=== PATIENT | male | born 1955 | race Caucasian/White ===

== ENCOUNTER 2023-07-28 16:25 | Emergency (ER) | payer OTHER, SELFPAY ==
--- NOTE | ~2023-07-28 | XR_ITS ---
EXAMINATION: XR CHEST CLINICAL INFORMATION: Chest pain. COMPARISON: None available. TECHNIQUE: PA view of the chest was obtained. FINDINGS: Normal heart size. Mild asymmetric elevation of the left hemidiaphragm with minimal streaky opacities in the left lower lobe. No pleural effusion or pneumothorax. No pulmonary edema. Age indeterminate deformity of the right mid clavicle. Visualized upper abdomen is within normal limits. XR/XR chest 1V IMPRESSION: 1. Mild asymmetric elevation of the left hemidiaphragm with streaky opacities in the left lower lobe most likely representing subsegmental atelectasis. 2. Age indeterminate deformity of the right mid clavicle. Correlate with physical examination and point tenderness.
[2023-07-28 16:37] VITALS: BP 141/90; PULSE 94; RESP 18; TEMP 36.5; O2SAT 96; BMI 29.6
--- NOTE | 2023-07-28 16:42 | ED_ITS ---
HPI - General Adult General Chief complaint: Psychiatric Symptoms Stated complaint: SI Time Seen by Provider: 07/28/23 18:06 Source: patient Mode of arrival: ambulatory Limitations: no limitations History of Present Illness HPI narrative: Pt is a 68yo male who presents to the ED with cp and psychological issues. States he has thoughts of hurting himself with a plan to slit his wrists. States his medical problems and psychological problems sparked the thoughts today. He notes that he has had passive SI before and has never acted on it. Still admits thoughts of harming self but states he would tell someone if he wanted to act on it. Denies HI. Pt states he sees an outpatient therapist. Pt notes a hx of anxiety and depression. He states that he has had chest pain constantly for the past few months as he has been trying to quit smoking. Associated with the chest pain is heartburn and nausea. Pt reports inpatient psychiatric hospitalization at [facility]. Related Data Home Medications Medication Instructions Recorded Confirmed acamprosate 333 mg tablet,delayed 666 mg PO TID 07/28/23 07/28/23 release cyanocobalamin (vitamin B-12) 1,000 mcg sublingual DAILY 07/28/23 07/28/23 1,000 mcg sublingual tablet famotidine 40 mg tablet 40 mg PO DAILY 07/28/23 07/28/23 methylcellulose (laxative) 500 mg 1,500 mg PO DAILY 07/28/23 07/28/23 tablet (Citrucel) nicotine (polacrilex) 4 mg buccal 8 mg PO Q2H PRN Nicotine Cravings 07/28/23 07/28/23 lozenge Previous Rx's Medication Instructions Recorded ziprasidone HCl 40 mg capsule 40 mg PO BID #60 caps 07/31/23 (Geodon) Allergies Allergy/AdvReac Type Severity Reaction Status Date / Time Penicillins Allergy Rash Verified 07/28/23 16:37 trazodone Allergy Rash Verified 07/28/23 16:37 Review of Systems 2 Review of Systems: Yes all other systems are reviewed and are negative ENT: Denies dizziness Cardiovascular: Cardiovascular: Reports chest pain and Reports dyspnea (occasional, not new) Respiratory: Respiratory: Reports dyspnea (occasional, not new) Gastrointestinal: Gastrointestinal: Denies constipation, Reports heartburn, Reports diarrhea (chronic), Reports nausea, Denies vomiting and Denies hematemesis Neurologic: Denies dizziness Psychiatric: Psychiatric: Reports anxiety, Reports depression, Denies auditory hallucinations, Denies visual hallucinations, Denies homicidal ideation and Reports suicidal ideation REPLACED BY [facility] Past Medical History Medical History (Updated 07/29/23 @ 15:00 by Boogie Wilson MD) Alcohol use disorder PTSD (post-traumatic stress disorder) MDD (major depressive disorder), recurrent, severe, with psychosis Physical Exam ED Vital Signs: Vital Signs - 24 hr 07/31/23 05:52 Temperature 98.0 F Pulse Rate 71 Respiratory Rate 16 Blood Pressure 100/64 Pulse Oximetry 90 L Oxygen Delivery Method Room Air BMI result Body Mass Index 29.6 Const General: cooperative, comfortable, alert and awake Orientation/consciousness: patient oriented x3 Limitations: no limitations HENMT Head: Yes normal to inspection Ears: hearing grossly normal bilaterally General nose exam: Normal external nose present Eyes General: appearance normal, both eyes and all related structures Resp Effort & Inspection: normal respiratory effort and able to speak in complete sentences Auscultation: clear to auscultation bilaterally Cardio Rate: regular rate Rhythm: regular rhythm Heart sounds: S1 normal heart sound present and S2 normal heart sound present GI Palpation (GI): Soft to palpation and nontender Auscultation: normal bowel sounds Neuro General: patient oriented x3 Psych Appearance: grossly normal Mental Status: mental status grossly normal (pt appears cognitively delayed) Speech and movement: Normal speech and movement present Affect: Indifferent affect present Attitude: cooperative Thought process: Normal thought process present Thought content: Suicidality present, no homicidality, no delusions, no hallucinations and Depressive thoughts present Insight: Poor insight present (Psych) Judgement: Limited judgement present (Psych) Course Course Course Narrative: RME: 68 yold male presents to the ED for Chest pain for months and suicidal/homicidal thoughts past couple of days. Recently discharged form detox. labs and EKG and xray ordered. Brought to psych POD. Care team consult placed. Reevaluation(s) Reevaluation #1: Patient seen by the care team and will be a bed search for inpatient psychiatric care. He is a voluntary surgeon is not on a Section 12 Time: 00:51 Reevaluation #2: physician observation: patient with COVID, Dr. wilson started new medications and will reassess in the moring Time: 15:48 Reevaluation #3: Physician observation continued: Patient was evaluated by the care team and the plan is to in in-patient bed search. Additional Reevaluation(s): 07:23 Physician observation continue Patient has been in the emergency department for 63 hours, there are no reported incidents by the overnight staff. Patient is COVID positive. Patient has been seen by the care team and is in in-patient bed search. Patient will remain in the emergency department Behavioral Health Unit until disposition can be determined or until patient's symptoms improve over time. 12:20 End physician observation Patient was re-evaluated by the care team and psychiatric consult was done by Dr. Garcia and they both were in agreement that the patient could be discharged Patient has an IOP appointment today 15:00 hours and his out reach worker will meet him tomorrow at 11:00 at the [facility]. Therefore the patient will be discharged home. Medications Administered Discontinued Medications Generic Name Dose Route Start Last Admin Trade Name Freq PRN Reason Stop Dose Admin Clonazepam 1 mg 07/29/23 12:04 07/29/23 13:35 Clonazepam 1 Mg Tablet PO 07/29/23 12:05 1 mg ONCE ONE Administration Clonazepam 1 mg 07/29/23 21:00 07/29/23 20:54 Clonazepam 1 Mg Tablet PO 07/29/23 23:55 1 mg BEDTIME ROWAN Administration Clonazepam 0.5 mg 07/30/23 09:00 07/30/23 21:03 Clonazepam 0.5 Mg Tablet PO 07/30/23 23:50 0.5 mg BID ROWAN Administration Cyanocobalamin 1,000 mcg 07/30/23 09:00 07/31/23 09:28 Cyanocobalamin (Vitamin B-12) 1,000 Mcg Tablet PO 1,000 mcg DAILY ROWAN Administration Diphenhydramine HCl 50 mg 07/29/23 03:48 07/29/23 03:54 Diphenhydramine Hcl 25 Mg Capsule PO 07/29/23 03:49 50 mg ONCE ONE Administration Famotidine 40 mg 07/30/23 09:00 07/31/23 09:27 Famotidine 20 Mg Tablet PO 40 mg DAILY ROWAN Administration Nicotine Polacrilex 2 mg 07/28/23 23:49 07/28/23 23:51 Nicotine Polacrilex Lozenge 2 Mg Lozenge BUCCAL 07/28/23 23:50 2 mg ONCE ONE Administration Nicotine Polacrilex 2 mg 07/29/23 11:26 07/29/23 11:30 Nicotine Polacrilex Lozenge 2 Mg Lozenge BUCCAL 07/29/23 11:27 2 mg ONCE ONE Administration Nicotine Polacrilex 4 mg 07/29/23 12:07 07/31/23 09:29 Nicotine Polacrilex Lozenge 4 Mg Lozenge BUCCAL 4 mg Q2H PRN Administration Nicotine Cravings Ziprasidone 20 mg 07/29/23 12:05 07/29/23 20:54 Ziprasidone 20 Mg Capsule PO 07/29/23 23:50 20 mg BID ROWAN Administration Ziprasidone 40 mg 07/30/23 08:00 07/31/23 09:27 Ziprasidone 40 Mg Capsule PO 40 mg BIDWM ROWAN Administration Medical Decision Making Medical Decision Making [facility] Narrative: 68-year-old male presents for evaluation of multiple complaints he complains of primarily depression with suicidal ideation but also complains of chronic chest pain. His chest pain is most significant with GI upset/peptic ulcer disease or gastritis. His troponin is negative, he had EKG is nonischemic. Patient is now medically cleared for care to evaluation Differential Diagnosis Differential Diagnoses: The differential diagnosis associated with the presentation includes (depressive episode, GERD, persistent depressive disorder, alcohol use disorder, acute stress reaction) Lab Data [facility] Lab Attestation statement: I reviewed the patient's lab results. No leukocytosis or anemia. No significant electrolyte abnormalities. Troponin less than 2.7 07/28/23 17:00 07/28/23 17:00 Labs: Lab Results 07/28/23 07/28/23 07/29/23 Range/Units 17:00 17:02 08:39 WBC 7.2 (4.8-10.8) X10*3/uL RBC 5.21 (4.60-5.80) X10*6/uL Hgb 14.9 (14.0-18.0) g/dl Hct 45.4 (42.0-52.0) % MCV 87.1 (80.0-98.0) fL MCH 28.6 (27.0-33.0) pg MCHC 32.8 (31.0-36.0) g/dl RDW 15.2 (11.0-16.0) % Plt Count 169 (160-400) X10*3/uL MPV 10.3 (9.4-12.4) fL Immature Gran % (Auto) 0.4 (0.0-0.4) % Neut % (Auto) 66.6 (45-73) % Lymph % (Auto) 19.8 L (20-40) % Oliver % (Auto) 13.0 H (2-11) % Eos % (Auto) 0.1 (0-4) % Baso % (Auto) 0.1 (0-2) % Lymph # (Auto) 1.4 (1.2-4.9) X10*3/uL Oliver # (Auto) 0.9 (0.1-1.2) X10*3/uL Eos # (Auto) 0.0 (0.0-0.4) X10*3/uL Baso # (Auto) 0.0 (0.0-0.2) X10*3/uL Abs Immat Gran (auto) 0.03 (0.00-0.03) X10*3/uL Absolute Neuts (auto) 4.8 (2.0-8.3) x10*3/uL Absolute Nucleated RBC 0.000 (0.0-0.012) X10*3/uL Nucleated RBC % (auto) 0.0 (0.0-0.2) /100WBC PT 11.5 (11.1-13.3) SEC INR 0.9 (0.9-1.1) APTT 31.1 (26.0-36.4) SEC Sodium 137 (135-145) mmol/L Potassium 4.1 (3.3-5.1) mmol/L Chloride 100 (96-108) mmol/L Carbon Dioxide 24 (22-29) mmol/L Anion Gap 17 (12-20) BUN 16 (9-16) mg/dL Creatinine 1.01 (0.5-1.4) mg/dL Estim Creat Clear Calc 75.2 Estimated GFR > 60 Random Glucose 89 (60-115) mg/dL Calcium 9.7 (8.4-10.2) mg/dL Total Bilirubin 0.4 (0.0-1.0) mg/dL AST 19 (5-37) U/L ALT 17 (0-40) U/L Alkaline Phosphatase 61 (39-117) U/L Troponin I High Sens < 2.7 (<3.5-35.0) ng/L Total Protein 8.0 (6.5-8.0) g/dL Albumin 4.5 (3.5-5.0) g/dL Urine Color Yellow Urine Appearance Clear Urine pH 6.5 (5.0-9.0) Ur Specific [place] 1.010 (1.005-1.025) Urine Protein Negative (Neg-Trace) mg/dL Urine Glucose (UA) Negative (Negative) mg/dL Urine Ketones 15 (Negative) mg/dL Urine Blood Negative (Negative) Urine Nitrite Negative (Negative) Ur Leukocyte Esterase Negative (Negative) Urine Opiates Screen Not Detected (Not Detect) Urine Fentanyl Screen Not Detected (Not Detect) Ur Barbiturates Screen Not Detected (Not Detect) Ur Phencyclidine Scrn Not Detected (Not Detect) Ur Amphetamines Screen Not Detected (Not Detect) U Benzodiazepines Scrn POSITIVE H (Not Detect) Urine Cocaine Screen Not Detected (Not Detect) U Marijuana (THC) Screen Not Detected (Not Detect) Ethyl Alcohol < 10 mg/dL COVID-19 (FAMILIA) Positive A (Negative) COVID-19 Clin Com See Note Discharge Plan Discharge Clinical Impression: Suicidal ideation, Chest pain Patient Disposition: Home, Self-Care Additional Instructions: Your evaluated by the care team and our psychiatrist, Dr. Garcia. Please follow their instructions and keep your IOP appointment today at 3PM Continue taking medications as prescribed Follow-up with your doctor in 2 days. Please return to the emergency department if your symptoms get worse or if you develop any symptoms that are concerning to you. Prescriptions: New ziprasidone HCl [Geodon] 40 mg capsule 40 mg PO BID Qty: 60 0RF Rx Instructions: give with food (meal/snack) No Action famotidine 40 mg tablet 40 mg PO DAILY Citrucel 500 mg tablet 1,500 mg PO DAILY cyanocobalamin (vitamin B-12) 1,000 mcg tablet, sublingual 1,000 mcg sublingual DAILY nicotine (polacrilex) 4 mg lozenge 8 mg PO Q2H PRN (Reason: Nicotine Cravings) acamprosate 333 mg tablet,delayed release (DR/EC) 666 mg PO TID Interventions: [place]-Suicide Risk Severity Scale Last Done: 07/31/23 10:07 ED Discharge Assessment Last Done: 07/31/23 12:58 Discharge Date/Time: 07/31/23 12:59
--- NOTE | 2023-07-28 16:48 | ECG_ITS ---
Test Reason : chest pain Blood Pressure : / mmHG Vent. Rate : 095 BPM Atrial Rate : 095 BPM P-R Int : 136 ms QRS Dur : 082 ms QT Int : 334 ms P-R-T Axes : 034 045 068 degrees QTc Int : 419 ms Normal sinus rhythm Normal ECG No previous ECGs available Referred By: Epi Jeff Electronically Signed By:JOBY LAN
[2023-07-28 17:08] LABS: MANUAL DIFF FLAG NO
[2023-07-28 17:09] LABS: Basophils Percent Auto 0.1 % (0-2); Eosinophils Percent Auto 0.1 % (0-4); Hematocrit 45.4 % (42.0-52.0); Hemoglobin 14.9 g/dl (14.0-18.0); Imm Gran Abs Auto 0.03 X10*3/uL (0.00-0.03); Imm Gran Pct Auto 0.4 % (0.0-0.4); Lymphocytes Absolute Auto 1.4 X10*3/uL (1.2-4.9); Lymphocytes Percent Auto 19.8 % (20-40); Mean Corpuscular HGB Conc 32.8 g/dl (31.0-36.0); Mean Corpuscular Hemoglobin 28.6 pg (27.0-33.0); Mean Corpuscular Volume 87.1 fL (80.0-98.0); Mean Platelet Volume 10.3 fL (9.4-12.4); Monocytes Absolute Auto 0.9 X10*3/uL (0.1-1.2); Neutrophils Absolute Auto 4.8 x10*3/uL (2.0-8.3); Neutrophils Percent Auto 66.6 % (45-73); Platelet Count 169 X10*3/uL (160-400); Red Blood Count 5.21 X10*6/uL (4.60-5.80); Red Cell Distribution Width 15.2 % (11.0-16.0); White Blood Count 7.2 X10*3/uL (4.8-10.8)
[2023-07-28 17:11] LABS: Appearance Urine Clear; Color Urine Yellow; Glucose Urine UA Negative (Negative); Leukocyte Esterase Urine Negative (Negative); Nitrite Urine Negative (Negative); PH 6.5 (5.0-9.0); Urine Blood Negative (Negative); Urine Ketones 15 mg/dL (Negative); Urine Protein Negative (Neg-Trace)
[2023-07-28 17:17] LABS: Amphetamine Screen Urine Not Detected (Not Detect); Barbiturates, Urine Not Detected (Not Detect); Benzodiazepines Screen Urine POSITIVE (Not Detect); Cannabinoid Screen Urine Not Detected (Not Detect); Cocaine Screen Urine Not Detected (Not Detect); Opiate Screen Urine Not Detected (Not Detect); Phencyclidine Screen Urine Not Detected (Not Detect)
[2023-07-28 17:21] LABS: INTERNATIONAL NORM RATIO 0.9 (0.9-1.1); Prothrombin Time 11.5 SEC (11.1-13.3)
[2023-07-28 17:21] LABS: Fentanyl, urine Not Detected (Not Detect)
[2023-07-28 17:24] LABS: Partial Thromboplastin Time 31.1 SEC (26.0-36.4)
[2023-07-28 17:25] LABS: Alanine Aminotransferase 17 U/L (0-40); Albumin Level 4.5 g/dL (3.5-5.0); Alkaline Phosphatase 61 U/L (39-117); Anion Gap 17 (12-20); Aspartate Amino Transferase 19 U/L (5-37); Bilirubin Total 0.4 mg/dL (0.0-1.0); Blood Urea Nitrogen 16 mg/dL (9-16); Calcium 9.7 mg/dL (8.4-10.2); Carbon Dioxide 24 mmol/L (22-29); Chloride 100 mmol/L (96-108); Creatinine Clr Calc Pharmacy 75.2; Estimated Glomerular Filt Rate > 60; Ethanol < 10 mg/dL; Glucose Random 89 mg/dL (60-115); Potassium 4.1 mmol/L (3.3-5.1); Sodium 137 mmol/L (135-145)
[2023-07-28 17:36] LABS: Troponin-I High Sensitivity < 2.7 ng/L (<3.5-35.0)
--- NOTE | 2023-07-28 19:21 | PC.NURSE ---
patient appears to be relaxing in bed awake, patient maintains safe behavior, stated to prior staff he continues to have SI. patient appears in no distress.
--- NOTE | 2023-07-28 22:34 | MHC.CARE ---
CARE team received a call back from pt's sister, Janae [phone]. She reported that he had recently completed a detox admission and has not been taking care of himself since returning home. She reported that this morning he stated he didn't want to take his medications and endorsed thoughts of and dying, which led to her bringing him to the emergency department for assessment. She was updated re: the disposition and the plan for psychiatric admission, and was advised that she can call again tomorrow afternoon for an update on whether he is being admitted or not.
[2023-07-28 23:30] VITALS: BP 111/77; PULSE 78; RESP 16; TEMP 36.4; O2SAT 98
[2023-07-28] MEDS: Nicotine Polacrilex Lozenge 2 MG LOZENGE BUCCAL (23:51)
[2023-07-29] MEDS: diphenhydrAMINE HCL 25 MG CAPSULE 50 MG PO (03:54)
[2023-07-29 09:00] LABS: COVID-19 Test Positive (Negative); IDNOW Serial# BCCEAD1C
--- NOTE | 2023-07-29 10:06 | PHA.MEDREC ---
Pharmacy Consult ? Medication Reconciliation Pharmacy has completed the medication reconciliation.PHARMACY HAS REVIEWED THE MED REC DONE BY NURSING
[2023-07-29] MEDS: Nicotine Polacrilex Lozenge 2 MG LOZENGE BUCCAL (11:30)
--- NOTE | 2023-07-29 12:06 | P.CNPS_ITS ---
History of Present Illness Date of Service: 07/29/23 Chief Complaint: SI Discussed with referring provider: No Sources of Information: patient interviewed, chart reviewed and crisis/core team assessment reviewed HPI Narrative: Patient is a 68 year-old male with history of depression, PTSD, alcohol abuse, currently COVID+ who presents with depression and suicidal ideation with thoughts to slit his wrists. Psychiatry consulted to assess. Patient reports that he has been feeling depressed for about 5 months. Says depression got worse this past few weeks and he started becoming hopeless but is not sure why. Patient was sober for about 4 years and then 3 or 4 months ago relapsed with alcohol and occasionally cocaine, drinking about a 12 pack of beer and a pint of liquor per day. Wanted to get sober so went to [facility] where he was detoxed for about 11 days, patient says still feels a little shaky. At detox his psychiatric medications were discontinued. Patient reports AH recently started which historically happen when he gets depressed; he came to the emergency room for SI and before he any visual hallucinations started which he says has happened in the past during bouts of depression. Patient would like to be restarted on ziprasidone now and anything else for depression. He reports he has had trouble sleeping for the past few nights but Denies current or history of manic episodes or behaviors. Past Psychiatric History: Reported past psychiatric hospitalization but not for decades History of being on ziprasidone Medical Evaluation Reviewed: Yes [facility] Medical History (Updated 07/29/23 @ 15:00 by Boogie Wilson MD) Alcohol use disorder PTSD (post-traumatic stress disorder) MDD (major depressive disorder), recurrent, severe, with psychosis Family History: Deferred Social History: Deferred Substance History: Alcoholism; sober for about 4 years. Relapsed about 3-4 months ago, drinking a 12 pack of beer and pt of whiskey per day Some occasional cocaine use Trauma History: Patient endorses trauma history but did not give details Diagnostics Vital Signs (24Hr): Vital Signs - 24 hr 07/28/23 16:37 07/28/23 23:30 Temperature 97.7 F 97.5 F Pulse Rate 94 78 Respiratory Rate 18 16 Blood Pressure 141/90 H 111/77 Pulse Oximetry 96 98 Oxygen Delivery Method Room Air Room Air BMI result Body Mass Index 29.6 Labs 07/28/23 17:00 07/28/23 17:00 Labs: Laboratory Results - last 48 hr 07/28/23 07/28/23 07/29/23 17:00 17:02 08:39 WBC 7.2 RBC 5.21 Hgb 14.9 Hct 45.4 MCV 87.1 MCH 28.6 MCHC 32.8 RDW 15.2 Plt Count 169 MPV 10.3 Immature Gran % (Auto) 0.4 Neut % (Auto) 66.6 Lymph % (Auto) 19.8 L [place] % (Auto) 13.0 H Eos % (Auto) 0.1 Baso % (Auto) 0.1 Lymph # (Auto) 1.4 [place] # (Auto) 0.9 Eos # (Auto) 0.0 Baso # (Auto) 0.0 Abs Immat Gran (auto) 0.03 Absolute Neuts (auto) 4.8 Absolute Nucleated RBC 0.000 Nucleated RBC % (auto) 0.0 PT 11.5 INR 0.9 APTT 31.1 Sodium 137 Potassium 4.1 Chloride 100 Carbon Dioxide 24 Anion Gap 17 BUN 16 Creatinine 1.01 Estim Creat Clear Calc 75.2 Estimated GFR > 60 Random Glucose 89 Calcium 9.7 Total Bilirubin 0.4 AST 19 ALT 17 Alkaline Phosphatase 61 Troponin I High Sens < 2.7 Total Protein 8.0 Albumin 4.5 Urine Color Yellow Urine Appearance Clear Urine pH 6.5 Ur Specific [place] 1.010 Urine Protein Negative Urine Glucose (UA) Negative Urine Ketones 15 Urine Blood Negative Urine Nitrite Negative Ur Leukocyte Esterase Negative Urine Opiates Screen Not Detected Urine Fentanyl Screen Not Detected Ur Barbiturates Screen Not Detected Ur Phencyclidine Scrn Not Detected Ur Amphetamines Screen Not Detected U Benzodiazepines Scrn POSITIVE H Urine Cocaine Screen Not Detected U Marijuana (THC) Screen Not Detected Ethyl Alcohol < 10 COVID-19 (FAMILIA) Positive A COVID-19 Clin Com See Note Imaging Radiology Impressions: ITS Impressions Chest X-Ray 07/28/23 17:11 IMPRESSION: 1. Mild asymmetric elevation of the left hemidiaphragm with streaky opacities in the left lower lobe most likely representing subsegmental atelectasis. 2. Age indeterminate deformity of the right mid clavicle. Correlate with physical examination and point tenderness. Mental Status Exam Mental Status Exam Narrative: Pt is alert and oriented; behavior is cooperative, friendly and calm; patient is not in distress; dressed in hospital attire with unkempt hair but adequate hygiene; mood is described as depressed and affect congruent, anxious; eye contact appropriate; Speech is normal rate, volume and prosody and not pressured; no psychomotor agitation/retardation present; thought process is organized and goal directed; Thought content is on hopelessness, tx; otherwise pertinent to relevant topics and without any delusional content, paranoid ideations or grandiosity; positive for SI; no HI. Endorses AH a voices. Patients insight and judgment impaired. Medications Medications Current Medications Clonazepam (Clonazepam 1 Mg Tablet) 1 mg PO ONCE ONE Stop: 07/29/23 12:05 Ziprasidone (Ziprasidone 20 Mg Capsule) 20 mg PO BID ROWAN Stop: 07/29/23 23:50 Ziprasidone (Ziprasidone 40 Mg Capsule) 40 mg PO BID ROWAN Allergies Allergies Allergy/AdvReac Type Severity Reaction Status Date / Time Penicillins Allergy Rash Verified 07/28/23 16:37 trazodone Allergy Rash Verified 07/28/23 16:37 Assessment & Plan Assessment & Plan (1) MDD (major depressive disorder), recurrent, severe, with psychosis: Status: Acute Code(s): F33.3 - Major depressive disorder, recurrent, severe with psychotic symptoms (2) PTSD (post-traumatic stress disorder): Status: Acute Code(s): F43.10 - Post-traumatic stress disorder, unspecified (3) Alcohol use disorder: Status: Acute Code(s): F10.90 - Alcohol use, unspecified, uncomplicated Plan Patient is a 68 year-old male with history of depression, PTSD, alcohol abuse, currently COVID + who presents with depression and suicidal ideation with thoughts to slit his wrists. Psychiatry consulted to assess. Patient reports that he has been feeling depressed for about 5 months. Says depression got worse this past few weeks and he started becoming hopeless but is not sure why. Patient was sober for about 4 years and then 3 or 4 months ago relapsed with alcohol and occasionally cocaine, drinking about a 12 pack of beer and a pint of liquor per day. Wanted to get sober so went to [facility] where he was detoxed for about 11 days, patient says still feels a little shaky. At detox his psychiatric medications were discontinued. Patient reports AH recently started which historically happen when he gets depressed; he came to the emergency room for SI and before he any visual hallucinations started which he says has happened in the past during bouts of depression. Patient would like to be restarted on ziprasidone now and anything else for depression. He reports he has had trouble sleeping for the past few nights but Denies current or history of manic episodes or behaviors. Impression: History of depression, only mild to moderately well treated with ziprasidone; history of psychotic symptoms with depression. At this time will diagnosed with MDD with psychosis however schizoaffective disorder remains a rule out. Obviously symptoms worsened with alcohol abuse, but specifically worsened over this past week when his ziprasidone was discontinued during detox. Patient is currently with depression, psychotic symptoms poor medication management at this time requires inpatient admission. Plan: Restart ziprasidone; will give 20 mg b.i.d. today and then start with 40 mg b.i.d. tomorrow; has been on 60 mg b.i.d. in the recent past Will give a few doses of clonazepam b.i.d. to help offset continued tremor, rub minute from alcohol withdrawal Recommended patient admission Total time managing care of this patient today ____ minutes. Patient educated on: diagnosis, medication risk/benefits and substance abuse Informed Consent: understands
[2023-07-29] MEDS: clonazePAM 1 MG TABLET PO ×2 (13:35→20:54)
[2023-07-29] MEDS: Ziprasidone 20 MG CAPSULE PO ×2 (13:35→20:54)
[2023-07-29 14:46] VITALS: RESP 18
--- NOTE | 2023-07-29 14:48 | PC.NURSE ---
Client swabbed for Covid this AM and tested positive. Reports he is feeling ok . Appetite good. Passive SI currently and verbalizes feeling safe while in the hospital. Compliant with scheduled medications.
--- NOTE | 2023-07-29 19:18 | PC.NURSE ---
patient appears to remain asleep at present respirations are even and unlabored patient appears in no distress
[2023-07-29] MEDS: Nicotine Polacrilex Lozenge 4 MG LOZENGE BUCCAL (20:59)
[2023-07-30 06:45] VITALS: BP 100/64; PULSE 81; RESP 16; TEMP 36.7; O2SAT 94
--- NOTE | 2023-07-30 07:49 | MHC.CARE ---
statewide narciso bedsearch conducted, unfortunately none of the units with beds available can accommodate a covid+ patient. RAD Team will continue bedsearch tomorrow if deemed necessary
--- NOTE | 2023-07-30 08:17 | PC.NURSE ---
REPORT RECEIVED FROM MAURICIO CHENEY. PT IS SLEEPING RESP EVEN AND UNLABORED.
[2023-07-30] MEDS: clonazePAM 0.5 MG TABLET PO ×2 (09:50→21:03)
[2023-07-30] MEDS: Cyanocobalamin (Vitamin B-12) 1,000 MCG TABLET 1000 MCG PO (09:50)
[2023-07-30] MEDS: Famotidine 20 MG TABLET 40 MG PO (09:50)
[2023-07-30] MEDS: Ziprasidone 40 MG CAPSULE PO ×2 (09:50→18:23)
--- NOTE | 2023-07-30 09:55 | PC.NURSE ---
PT IS A/O NO SOB/RODY NOTED SPEAKS IN FULL SENTENCES. PT DENIES ANY SI/HI. PT IS RESTING IN HIS ROOM AT THIS TIME. PT AWARE OF PLAN OF CARE.
--- NOTE | 2023-07-30 15:14 | PHA.MEDREC ---
Pharmacy Consult ? Medication Reconciliation Pharmacy has reviewed the medication reconciliation completed by Castro.
[2023-07-30 15:34] VITALS: RESP 16
--- NOTE | 2023-07-30 15:35 | PC.NURSE ---
Isaiah was in his bed resting for most of the shift. Pleasant but flat when engaged. Appetite fair. Covid +. No behavioral concerns. Denies HI/AVH.
--- NOTE | 2023-07-30 20:06 | PC.NURSE ---
Assumed care of pt. Pt lying on stretcher, eyes closed, respirations even and unlabored. Continuing plan of care for inpatient placement.
[2023-07-30] MEDS: Nicotine Polacrilex Lozenge 4 MG LOZENGE BUCCAL (21:03)
--- NOTE | 2023-07-30 23:17 | PC.NURSE ---
Pt remains lying on stretcher, eyes closed, respirations even and unlabored, no acute distress. Continuing plan of care.
--- NOTE | 2023-07-31 03:49 | PC.NURSE ---
Pt remains lying on stretcher, eyes closed, respirations even and unlabored, no acute distress.
[2023-07-31 05:52] VITALS: BP 100/64; PULSE 71; RESP 16; TEMP 36.7; O2SAT 90
--- NOTE | 2023-07-31 08:07 | MHC.CARE ---
Statewide bedsearch conducted- unfortunately no beds are available to pt due to being covid+, RAD Team will continue bedsearch tomorrow if deemed appropriate
[2023-07-31] MEDS: Famotidine 20 MG TABLET 40 MG PO (09:27)
[2023-07-31] MEDS: Ziprasidone 40 MG CAPSULE PO (09:27)
[2023-07-31] MEDS: Cyanocobalamin (Vitamin B-12) 1,000 MCG TABLET 1000 MCG PO (09:28)
[2023-07-31] MEDS: Nicotine Polacrilex Lozenge 4 MG LOZENGE BUCCAL (09:29)
--- NOTE | 2023-07-31 10:06 | PC.NURSE ---
care team met with patient, continues to endorse feeling unsafe with the idea of being discharged. medicated per the MAR, ambulated to bathroom with steady gait. no signs/symptoms of distress noted.
== END 2023-07-31 12:59 | disposition home or self-care (01) ==
PROVIDERS: Physician Assistant; Emergency Provider Emergency Medicine Emergency Medical Services
DX: R45.851 Suicidal ideations (principal); F33.3 Major depressive disorder, recurrent, severe with psychotic symptoms; F43.10 Post-traumatic stress disorder, unspecified; F10.90 Alcohol use, unspecified, uncomplicated; R07.9 Chest pain, unspecified; U07.1 COVID-19; Z79.899 Other long term (current) drug therapy
CPT/HCPCS: 36415; 71045; 80053; 80307; 81003; 84484; 85025; 85610; 85730; 87635; 93005; 99284; 99285; S9485

== ENCOUNTER → 2023-07-28 16:48 | Outpatient (BNV) | payer OTHER, SELFPAY | PROVIDERS: Emergency Provider Internal Medicine; Visit Provider Internal Medicine | DX: R07.9 Chest pain, unspecified (principal) | CPT/HCPCS: 93010 ==

== ENCOUNTER → 2023-07-28 17:41 | Outpatient (BNV) | payer OTHER, SELFPAY | PROVIDERS: Emergency Provider Internal Medicine; Visit Provider Psychiatry & Neurology Psychiatry | DX: F33.3 Major depressive disorder, recurrent, severe with psychotic symptoms (principal); F43.11 Post-traumatic stress disorder, acute; F10.90 Alcohol use, unspecified, uncomplicated | CPT/HCPCS: 99283 ==